=== PATIENT | female | born 1960 | race African-American/Black ===

== ENCOUNTER 2023-04-02 08:29 | Emergency (ER) | payer OTHER ==
[~2023-04-02] VITALS: Ht 170.2 cm; Wt 91.0 kg
[2023-04-02 08:31] VITALS: BP 137/61; PULSE 83; RESP 19; O2SAT 98
[2023-04-02] MEDS ORDERED: KETOROLAC 30MG/ML VIAL IV STA (08:34)
[2023-04-02] MEDS ORDERED: FAMOTIDINE 20MG/2ML VIAL IV STA (08:34)
[2023-04-02 08:55] LABS: BASOPHILS % 0.8 % (0.0-2.0); EOSINOPHILS % 0.8 % (0.0-5.0); HEMATOCRIT. 39.2 % (36.0-48.0); HEMOGLOBIN. 12.7 g/dL (12.0-16.0); LYMPHOCYTES % 35.8 % (20.0-50.0); MEAN CORPUSCULAR HEMOGLOBIN 29.5 pg (28.0-32.0); MEAN CORPUSCULAR HGB CONC 32.5 g/dL (31.0-37.0); MEAN PLATELET VOLUME 9.8 fl (7.4-10.4); MONOCYTES % 6.9 % (2.0-8.0); NEUTROPHILS % 55.7 % (40.0-76.0); PLATELET 173 x1000/uL (130-400); RED BLOOD CELL COUNT 4.31 mill/uL (4.2-5.4); RED CELL DISTRIBUTION WIDTH 15.8 % (11.6-14.6)
[2023-04-02 08:59] LABS: CHLORIDE 107 mEq/L (98-107); INDEX HEMOLYSI 1 (1-3); INDEX ICTERIC 1 (1-4); INDEX LIPEMIC 1 (1-3); POTASSIUM 3.9 mEq/L (3.5-5.1); SODIUM 139 mEq/L (136-145)
[2023-04-02 09:04] LABS: PROTHROMBIN TIME 10.9 sec (9.6-11.0)
[2023-04-02 09:08] LABS: ALANINE AMINOTRANSFERASE 24 IU/L (13-61); ALBUMIN 3.7 g/dL (3.4-5.0); ASPARTATE AMINOTRANSFERASE 18 IU/L (15-37); BILIRUBIN TOTAL 0.2 mg/dL (0.1-1.0); CALCIUM 9.1 mg/dL (8.5-10.1); CARBON DIOXIDE 27 mEq/L (21-32); CREATININE 0.7 mg/dL (0.6-1.3); GLUCOSE 114 mg/dL (70-105); PROTEIN TOTAL 7.6 g/dL (6.0-8.3); UREA NITROGEN BLOOD 17 mg/dL (7-21)
[2023-04-02] MEDS ORDERED: ONDA4TAB50 PO (10:35)
[2023-04-02] MEDS ORDERED: TOPUD PO (10:35)
[2023-04-02] MEDS ORDERED: FAMOTIDINE 20MG/2ML VIAL IV NR (10:57)
[2023-04-02] MEDS ORDERED: KETOROLAC 30MG/ML VIAL IV NR (10:58)
[2023-04-02 11:00] VITALS: TEMP 97.9
[2023-04-02] MEDS ORDERED: ACETAMINOPHEN 325MG TABLET PO ONE (11:00)
[2023-04-02] MEDS ORDERED: FAMOTIDINE 20MG TABLET PO ONE (11:00)
== END 2023-04-02 11:26 | disposition home or self-care (01) ==
LOC: ER 08:29
DX: R10.9 Unspecified abdominal pain (principal); R11.2 Nausea with vomiting, unspecified; Z85.3 Personal history of malignant neoplasm of breast
CPT/HCPCS: 36415; 80053; 85025; 99283; J1885; J3490